=== PATIENT | male | born 1945 | race African-American/Black ===

== ENCOUNTER 2020-09-20 13:51 | Emergency (ER) | payer OTHER, SELFPAY ==
[2020-09-20 13:59] VITALS: BP 132/73; PULSE 70; RESP 16; TEMP 36.7; O2SAT 100
[2020-09-20 14:06] VITALS: BP 132/73; PULSE 70; RESP 16; TEMP 36.7; O2SAT 100
--- NOTE | 2020-09-20 14:22 | ED.SKABFB ---
HPI - Skin/Abscess/Foreign Bdy General Chief complaint: Skin/Abscess/Foreign Body Stated complaint: rash Time Seen by Provider: 09/20/20 13:53 Source: patient Mode of arrival: ambulatory Limitations: no limitations History of Present Illness HPI narrative: 74-year-old male presents to [facility] with complaints of raised erythematous fluid-filled irritating rash to his right groin wrapping around to his right buttock for the past 3 days. Patient has been applying rubbing alcohol with little relief. Patient denies fever, body aches, chills, nausea, vomiting or diarrhea. MD complaint: rash Onset (ago): day(s) (3) Quality: other (Irritating) Pain Consistency: constant Exacerbating factors: none Context: none Associated symptoms: denies other symptoms Treatments prior to arrival: none Related Data Home Medications Medication Instructions Recorded Confirmed amlodipine 09/20/20 clopidogrel 09/20/20 dicyclomine mg 09/20/20 ezetimibe mg 09/20/20 isosorbide mononitrate mg PO 09/20/20 methocarbamol mg 09/20/20 metoprolol succinate PO 09/20/20 ranolazine mg PO 09/20/20 rosuvastatin mg 09/20/20 Allergies Allergy/AdvReac Type Severity Reaction Status Date / Time morphine Allergy Mild Unverified 09/23/13 10:14 nitroglycerin Allergy Mild nausea Verified 09/23/13 10:14 Review of Systems Constitutional: Constitutional: Denies chills, Denies fatigue, Denies fever(s) and Denies weakness ENT: Denies sore throat Cardiovascular: Cardiovascular: Denies chest pain, Denies rapid heart rate, Denies radiating jaw, neck or arm pain and Denies slow heart rate Respiratory: Respiratory: Denies chest congestion, Denies cough, Denies dyspnea and Denies wheezing Gastrointestinal: Gastrointestinal: Denies abdominal pain, Denies diarrhea, Denies nausea and Denies vomiting Integumentary/Breasts: Skin/Breast: Denies pruritus, Reports rash and Denies skin ulcer PMFSH Family History Family History (Updated 09/20/20 @ 14:24 by Marychuy Frey APRN) Father Acute myocardial infarction Mother Acute myocardial infarction Social History Social History (Updated 09/20/20 @ 14:24 by Marychuy M. Shante, DISABILITY EXAMINER) Smoking status: Never smoker Living arrangements: with family Gender identity (if verbalized by the patient): Male Comments At time of signature, I agree with nursing past medical, surgical, social and family history. There is no relevant family history pertinent to the presenting complaint. Exam Const: General: no acute distress Nutritional Appearance: well nourished Orientation/consciousness: patient oriented x3 Resp: Effort & Inspection: normal respiratory effort, not labored and not tachypneic Auscultation: clear to auscultation bilaterally Cardio: Rate: regular rate, not bradycardic and not tachycardic Rhythm: regular rhythm Heart sounds: no murmurs Skin: General skin exam: normal color Wounds: no wounds Other: There is a raised vesicular rash noted to right groin wrapping around to right buttock representing herpes zoster. There is no surrounding erythema, purulent drainage, necrotic tissue or signs infection noted Neuro: General: patient oriented x3 and moves all extremities Speech: normal speech Psych: Appearance: grossly normal Mental Status: mental status grossly normal Affect: normal affect Attitude: cooperative Thought content: Yes Normal thought content present Course Vital Signs Vital signs: Vital Signs Temperature 36.7 C 09/20/20 13:59 Pulse Rate 70 09/20/20 13:59 Respiratory Rate 16 09/20/20 13:59 Blood Pressure 132/73 09/20/20 13:59 Pulse Oximetry 100 09/20/20 13:59 Temperature 36.7 C 09/20/20 14:06 Pulse Rate 70 09/20/20 14:06 Respiratory Rate 16 09/20/20 14:06 Blood Pressure 132/73 09/20/20 14:06 Pulse Oximetry 100 09/20/20 14:06 MDM - Skin/Abscess/Foreign Bdy MDM Narrative Medical decision making narrative: Shingles discussed in full deta
== END 2020-09-20 14:36 | disposition home or self-care (01) ==
PROVIDERS: Emergency Provider Nurse Practitioner Family
DX: B02.9 Zoster without complications (principal); E78.00 Pure hypercholesterolemia, unspecified; I10 Essential (primary) hypertension; Z86.73 Personal history of transient ischemic attack (TIA), and cerebral infarction without residual deficits
CPT/HCPCS: 99203; G0463